=== PATIENT | male | born 1985 | race Two or more races ===

== ENCOUNTER 2024-11-28 03:44 | Emergency (ER) | payer MEDICAID, SELFPAY ==
[2024-11-28 03:54] VITALS: BP 147/94; PULSE 71; RESP 16; TEMP 36.6; O2SAT 98; BMI 26.2
--- NOTE | 2024-11-28 04:09 | XR_ITS ---
Examination: CT abdomen and pelvis without contrast. Coronal 3-D reconstructions. Sagittal 2-D reconstructions. Date and time of exam:November 28, 2024, 0426 hours Comparison March 27, 2019 INDICATIONS: Left flank pain today, history kidney stones on CT examination of March 27, 2019 CTDI: vol (mGy): 6.67 DLP: (mGycm): 403 Technique: Axial images of the abdomen have been obtained, 3 mm slice thickness Intravenous contrast material has not been administered. Low dose protocols were performed. One or more of the following dose reduction techniques were used; automated exposure control, adjustment of the mA and/or KV according to patient size, use of iterative reconstruction technique. Findings: No liver or splenic lesions No gallstones No pancreatic mass Bilateral renal calculi, the largest 3 mm in the right kidney. Mild left hydronephrosis secondary to 3 mm proximal left ureteral calculus Aorta normal size Normal appendix Contracted urinary bladder, no bladder mass or bladder calculi IMPRESSION: Mild left hydronephrosis secondary to a 3 mm proximal left ureteral calculus
--- NOTE | 2024-11-28 04:46 | EDRME_ITS ---
Rapid Medical Screening Exam RME Arrival date/time: 11/28/24 03:44 This is a case 39-year-old male who came in in the emergency room due to left- sided abdominal pain radiating to the left flank associated with nausea vomiting worsening of the pain this patient decided to sought consult here in the emergency room Chief Complaint: Abdominal Pain Time Seen by Provider: 11/28/24 04:06 Vital signs: Vital Signs Temperature 98 F 11/28/24 03:54 Pulse Rate 71 11/28/24 03:54 Respiratory Rate 16 11/28/24 03:54 Blood Pressure 147/94 H 11/28/24 03:54 Pulse Oximetry (%) 98 11/28/24 03:54 Oxygen Delivery Method Room Air 11/28/24 03:54
[2024-11-28 04:48] LABS: Basophils # (Auto) 0.0 Thou/mm3 (0.0-0.2); Basophils % (Auto) 0 % (0-2.5); Eosinophils # (Auto) 0.1 Thou/mm3 (0.0-0.5); Eosinophils % (Auto) 1 % (0-10); Hematocrit 40.7 % (41.0-53.0); Hemoglobin 14.9 g/dL (13.5-16.0); Immature Granulocytes Auto 0.05 Thou/mm3 (0.00-0.00); Lymphocytes # (Auto) 2.2 Thou/mm3 (1.0-4.8); Lymphocytes % (Auto) 18 % (10-50); Mean Corpuscular HGB Conc 36.6 g/dl (31.0-37.0); Mean Corpuscular Hemoglobin 31.9 pg (25.0-35.0); Mean Corpuscular Volume 87 fL (80-100); Monocytes # (Auto) 0.6 Thou/mm3 (0.0-0.8); Monocytes % (Auto) 5 % (0-12); Neutrophils # (Auto) 9.3 Thou/mm3 (1.8-7.7); Neutrophils % (Auto) 76 % (37-80); Nucleated Red Blood Cell # 0.00 Thou/mm3 (0.00-0.00); Nucleated Red Blood Cell % 0 /100 WBC (0); Platelet Count 228 Thou/mm3 (140-440); RDW Standard Deviation 41.5 fL (35.1-43.9); Red Blood Count 4.67 Miln/mm3 (4.50-5.90); White Blood Count 12.2 Thou/mm3 (3.8-10.6)
[2024-11-28 05:04] LABS: Alanine Aminotransferase 39 U/L (10-49); Albumin, Serum 4.5 gm/dL (3.5-5.0); Albumin/Globulin Ratio 1.7 (1.2-2.2); Alkaline Phosphatase 83 U/L (46-116); Anion Gap 8 (7-16); Aspartate Amino Transferase 27 U/L (0-34); BUN/Creatinine Ratio 9 Ratio (12-20); Bilirubin,Total 0.8 mg/dL (0.3-1.2); Blood Urea Nitrogen 9 mg/dL (9-23); Calcium 9.2 mg/dL (8.3-10.6); Calcium (Corrected) 9.2 mg/dL (8.5-10.1); Carbon Dioxide 26.4 mMol/L (20.0-31.0); Chloride 107 mMol/L (98-107); Creatinine (Component) 1.0 mg/dL (0.6-1.3); Estimated Creatinine Clearance 99.2 mL/min (>60); Globulin 2.6 gm/dL (2.3-3.5); Glucose 112 mg/dL (74-106); Lipase 41 U/L (12-53); Osmolality,Calculated 280 (275-295); Potassium 4.0 mMol/L (3.4-5.1); Sodium 141 mMol/L (136-145); Total Protein 7.1 gm/dL (5.7-8.2); eGFR > 60 See Note
[2024-11-28 05:32] VITALS: BP 130/86; PULSE 56; RESP 19; TEMP 36.6; O2SAT 95
--- NOTE | 2024-11-28 05:34 | PRELIM_ITS ---
CT scan of the abdomen and pelvis without intravenous contrast (axial sections with sagittal and coronal reformats) November 28, 2024 0426 hours Clinical History: kidney ton Findings: The lung bases are clear. The liver, gallbladder, pancreas, spleen and adrenals are unremarkable on this noncontrast study. There is 3mm obstructing left proximal ureteric calculus causing mild hydroureteronephrosis(axial image 94/286). Nonobstructing bilateral renal calculi are noted. No evidence of bowel obstruction. The appendix is within normal limits. There is no mesenteric or retroperitoneal adenopathy. The urinary bladder is incompletely distended at the time of the examination. There is no free fluid or free air. The osseous structures are unremarkable. Impression: 3mm obstructing left proximal ureteric calculus causing mild hydroureteronephrosis. Other findings as described above. Report Electronically Signed By: Sanjeev Lamb 11/28/2024 5:33:19 AM [EST]
[2024-11-28 05:44] LABS: Collection Type, Urine Clean Catch; Squamous Epithelial Cell,Urine 0 /hpf (0-5)
[2024-11-28 05:52] LABS: Bilirubin,Urine Negative (Negative); Blood,Urine 3+ (Negative); Clarity,Urine Clear (Clear/Hazy); Color,Urine Lt-Yellow (Lt Yel-Yel); Glucose, Urine Negative (Negative); Ketones,Urine Negative (Negative); Leukocyte Esterase,Urine Negative (Negative); Nitrite,Urine Negative (Negative); PH,Urine 6.0 (5.0-7.0); Protein,Urine Trace (Neg - Trace); RBC,Urine 477 /hpf (0-3); Specific Gravity,Urine 1.025 (1.001-1.035); Urobilinogen,Urine Negative mg/dL (0.0-1.0); WBC,Urine 4 /hpf (0-5)
[2024-11-28] MEDS: ONDANSETRON ODT 4 MG TABRAP PO (06:43)
[2024-11-28] MEDS: KETOROLAC INJ 30 MG/ML VIAL IM (06:43)
[2024-11-28 06:48] VITALS: BP 121/89; PULSE 76; RESP 16; TEMP 36.8; O2SAT 98
--- NOTE | 2024-11-28 07:01 | EDNOTE_ITS ---
<Statement entered by Aruna Ahumada MD - 12/05/24 04:08> As co-signing physician, I was present and available for consult prn. I concur with the plan and care as documented by the midlevel provider. ED Abdominal Pain RME/HPI General Chief Complaint: Abdominal Pain Stated complaint: LEFT KIDNEY PAIN Time seen by provider: 11/28/24 04:06 Arrival date/time: 11/28/24 03:44 39-year-old male with history of kidney stone presents to the emergency department today for complaint of left flank pain. Patient reports mild nausea without vomiting. Limitations: no limitations RME / HPI RME / HPI narrative: 11/28/24 03:44 This is a case 39-year-old male who came in in the emergency room due to left- sided abdominal pain radiating to the left flank associated with nausea vomiting worsening of the pain this patient decided to sought consult here in the emergency room Related Data Previous Rx's ?Medication ?Instructions ?Recorded ibuprofen 800 mg tablet 800 mg PO TID PRN pain #30 t abs 04/29/20 hydrocodone 5 mg-acetaminophen 325 1 tab PO BID PRN pa in #10 tabs 11/28/24 mg tablet ibuprofen 800 mg tablet 800 mg PO TID PRN pain #30 t abs 11/28/24 ondansetron 4 mg disintegrating 4 mg PO Q8H PRN nausea and 11/28/24 tablet vomiting #10 tabs tamsulosin 0.4 mg capsule (Flomax) 0.4 mg PO QDAY 14 d ays #14 caps 11/28/24 Allergies Allergy/AdvReac Type Severity Reaction Status Date / Time NKA* Allergy Uncoded 04/29/20 09:22 Review of Systems Review of Systems Systems Reviewed: All systems reviewed, normal except as documented Constitutional Constitutional: Reports system reviewed and no additional complaints, except as documented, Denies fever(s) and Denies headache(s) Eyes Eyes: Reports system reviewed and no additional complaints, except as documented and Denies blurry vision ENT Ears, Nose, Mouth, and Throat: Reports system reviewed and no additional complaints, except as documented, Denies headache(s), Denies nasal congestion and Denies nasal discharge Cardiovascular Cardiovascular: Reports system reviewed and no additional complaints, except as documented, Denies chest pain and Denies dyspnea Respiratory Respiratory: Reports system reviewed and no additional complaints, except as documented, Denies chest congestion, Denies cough and Denies dyspnea Gastrointestinal Gastrointestinal: Reports system reviewed and no additional complaints, except as documented and Denies abdominal pain Genitourinary Genitourinary: Reports system reviewed and no additional complaints, except as documented, Denies dysuria and Reports other (Left flank pain) Integumentary/Breasts Skin/Breast: Reports system reviewed and no additional complaints, except as documented and Denies rash Neurologic Neurologic: Reports system reviewed and no additional complaints, except as documented, Reports as per HPI and Denies headache(s) Past Medical History Past Medical History CARDIAC: Negative Congestive Heart Failure RESPIRATORY: Negative Chronic Obstructive Pulmonary Disease (COPD) GENITOURINARY: Negative Renal Disease ENDOCRINE: Negative Diabetes Mellitus Type 1 or Diabetes Mellitus Type 2 Social History SMOKING STATUS: Never smoker ED Exam General Limitations: Present no limitations General appearance: Present alert and in no apparent distress Head Head exam: Present atraumatic, normocephalic and normal inspection Eye Eye exam: Present normal appearance, PERRL and EOMI; Absent conjunctival injection ENT ENT exam: Present normal exam, normal oropharynx and mucous membranes moist Neck Neck exam: Present normal inspection, full ROM and trachea midline Chest Chest inspection: Present normal inspection and symmetric chest wall rise Respiratory Respiratory exam: Present normal lung sounds bilaterally Cardiovascular Cardiovascular exam: Present regular rate, normal rhythm and normal heart sounds Abdominal Exam Abdominal exam: Present soft and normal bowel sounds; Absent distention, tenderness, guarding, rebound, rigidity, Obregon's sign or tenderness at McBurney's Point Extremities Exam Extremities exam: Present normal inspection and full ROM Back Exam Back exam: Present normal inspection and full ROM Neurological Exam Neurological exam: Present alert, oriented X3, CN II-XII intact, normal gait and reflexes normal; Absent motor sensory deficit Psychiatric Psychiatric exam: Present normal affect and normal mood Skin Skin exam: Present warm, dry, intact and normal color Course Quality Measures none Orders Category Date Time Status CT abdomen pelvis wo con Stat Exams 11/28/24 04:09 Taken CBC Stat Lab 11/28/24 04:41 Completed Comprehensive Metabolic Panel Stat Lab 11/28/24 04:41 Completed Lipase Stat Lab 11/28/24 04:41 Completed Urinalysis Stat Lab 11/28/24 05:24 Completed Ketorolac Inj [Toradol Inj] Med 11/28/24 06:37 Discontinued 30 mg IM X1 ONE Ondansetron Odt [Zofran Odt] Med 11/28/24 06:37 Discontinued 4 mg PO X1 ONE Vital Signs Vital signs: Vital Signs Temperature 98 F 11/28/24 03:54 Pulse Rate 71 11/28/24 03:54 Respiratory Rate 16 11/28/24 03:54 Blood Pressure 147/94 H 11/28/24 03:54 Pulse Oximetry (%) 98 11/28/24 03:54 Oxygen Delivery Method Room Air 11/28/24 03:54 O2 saturation 98% on room air within normal limits Abdominal Pain MDM MDM Narrative MDM Narrative:: 39-year-old male with history of kidney stone presents to the emergency department today for complaint of left flank pain. Patient reports mild nausea without vomiting. On exam patient well-appearing patient does not appear ill or toxic in no acute distress Lab work and imaging obtained symptomatology as well as labs and CT scan consistent with kidney stone At the time of my examination of this patient patient does not appear ill or toxic patient reports only very mild pain even without pain medication Patient was given Toradol and Zofran here Patient discharged home with pain medication medication for nausea and Flomax. I explained to the patient should symptoms persist or worsen he must return immediately for further evaluation patient states understand Patient data External records reviewed:: [facility] previous records Clinical information provided by:: patient Social determinants that could affect healthcare access:: none Patient has the following chronic illnesses:: See history How is presenting disease/condition affected by chronic disease/condition?: caused by Evaluation data The following diagnostics were reviewed and interpreted by me:: lab results and radiology exam(s) Lab and/or radiology exams considered but not ordered:: Labs and radiology obtained Interpretation Summary: Reviewed by me Medications / Prescriptions Medications or Prescriptions considered but not ordered:: Given Medication administrations:: Medication Administration History Discontinued Medications Ketorolac Tromethamine (Ketorolac Inj 30 Mg/Ml Vial) 30 mg IM X1 ONE Stop: 11/28/24 06:38 Last Admin: 11/28/24 06:43 Dose: 30 mg Documented By: JOSE L Ondansetron HCl (Ondansetron Odt 4 Mg Tabrap) 4 mg PO X1 ONE; Protocol Stop: 11/28/24 06:38 Last Admin: 11/28/24 06:43 Dose: 4 mg Documented By: JOSE L Given Consultations Consultation(s) initiated? (list below): No Diagnosis Differential diagnosis abdominal pain: abdominal pain, calculus of kidney and pancreatitis Most likely diagnosis given after review of the tests above:: Calculus of kidney Admission Indicated Admission indicated?: not indicated Admission Request Was there a request for admission?: No Disposition Plan Disposition Plan: Discharge Discharge Attestation Discharge Attestation: The patient and all family members were given an opportunity to ask questions and understood the discharge instructions. Discharge instructions specifically effects, indications for sooner follow up or return to the emergency department, and the expected course of current diagnosis. Patient condition: Stable Discharge Plan Plan Patient Disposition: HOME (Self Care) Discharge Disposition comment: Stable Prescriptions/Referrals Prescriptions/Med Rec: New ibuprofen 800 mg tablet 800 mg PO TID PRN (Reason: pain) Qty: 30 0RF hydrocodone-acetaminophen 5-325 mg tablet 1 tab PO BID MDD 10 PRN (Reason: pain) Qty: 10 0RF tamsulosin [Flomax] 0.4 mg capsule 0.4 mg PO QDAY 14 Days Qty: 14 0RF ondansetron 4 mg tablet,disintegrating 4 mg PO Q8H PRN (Reason: nausea and vomiting) Qty: 10 0RF No Action ibuprofen 800 mg tablet 800 mg PO TID PRN (Reason: pain) Qty: 30 0RF Referrals: Karthik Santana PA-C [Primary Care Provider] - 11/29/24 Problem List Clinical Impression: Calculus, renal Patient/Caregiver Discharge Instructions Education Materials: Healthy Kidneys Additional Instructions: Please follow up with your primary care doctor in the next 24-48hrs for any worsening symptoms return here immediately Print Language: Barbadian Stand Alone Forms: Sheila Award Info., Work/School Release, Patient Portal Info Letter MARIMAR/HANG Supervising Physician MARIMAR/HANG Supervising Physician: Dr. porter
== END 2024-11-28 06:49 | disposition home or self-care (01) ==
PROVIDERS: Nurse Practitioner Family; Emergency Provider Emergency Medicine; PCP Physician Assistant
DX: N13.2 Hydronephrosis with renal and ureteral calculous obstruction (principal)
CPT/HCPCS: 36415; 74176; 80053; 81001; 83690; 85025; 96372; 99283; J1885; Q0162